=== PATIENT | female | born 1995 | race Caucasian/White ===

== ENCOUNTER 2017-04-27 11:39 | Outpatient (CLI) | END 2017-04-27 14:30 | disposition home or self-care (01) ==

== ENCOUNTER 2017-05-09 16:21 | Inpatient (IN) | END 2017-05-11 22:00 | disposition home or self-care (01) | DRG 781 ==

== ENCOUNTER 2017-08-20 10:41 | Outpatient (CLI) | END 2017-08-20 19:12 | disposition home or self-care (01) ==

== ENCOUNTER 2017-09-03 22:05 | Inpatient (IN) | END 2017-09-06 17:10 | disposition home or self-care (01) | DRG 775 ==